=== PATIENT | female | born 1930 | race Caucasian/White ===

== ENCOUNTER 2016-07-07 13:25 | Inpatient (IN) | payer MEDICARE ==
[~2016-07-07] VITALS: Ht 160 cm; Wt 55.3 kg
[2016-07-07] MEDS ORDERED: OLANZAPINE 10 MG VIAL IM ONE ×2 (13:45→14:23)
[2016-07-07 13:48] LABS: BASOPHILS % (AUTO) 0.6 % (0.0-2.0); EOSINOPHILS # (AUTO) 0.1 K/uL (0.0-0.7); EOSINOPHILS % (AUTO) 0.8 % (0.0-7.0); HEMOGLOBIN 14.1 g/dL (12.0-16.0); MEAN CORPUSCULAR HEMOGLOBIN 28.8 uug (27.0-31.0); MEAN CORPUSCULAR HGB CONC 33 g/dL (32.0-37.0); MONOCYTES # (AUTO) 0.5 K/uL (0.1-1.30); MONOCYTES % (AUTO) 7.1 % (0.0-11.0); NEUTROPHILS % (AUTO) 75.5 % (38.5-71.5); PLATELET COUNT (AUTO) 252 K/uL (150-450); RED BLOOD CELL COUNT(AUTO) 4.89 MIL/uL (4.20-5.40); RED CELL DISTRIBUTION WIDTH 12.8 % (11.5-14.5); WHITE BLOOD COUNT (AUTO) 6.6 K/uL (4.0-11.2)
[2016-07-07 14:03] LABS: ALANINE AMINOTRANSFERASE 12 U/L (14-59); ALBUMIN 3.3 g/dL (3.4-5.0); ALKALINE PHOSPHATASE 59 U/L (50-136); ASPARTATE AMINOTRANSFERASE 15 U/L (15-37); BILIRUBIN,DIRECT 0.2 mg/dL (0.0-0.2); BILIRUBIN,TOTAL 0.7 mg/dL (0.2-1.0); CALCIUM 8.6 mg/dL (8.5-10.1); CARBON DIOXIDE 31 mmol/L (21-32); CHLORIDE 102 mmol/L (98-107); GLUCOSE 121 mg/dL (74-106); POTASSIUM 3.2 mmol/L (3.5-5.1); SODIUM SERUM 141 mmol/L (136-145); TOTAL PROTEIN, SERUM 6.7 g/dL (6.4-8.2); UREA NITROGEN, BLOOD 18 mg/dL (7-18)
[2016-07-07 14:05] LABS: ACETAMINOPHEN < 2.0 ug/mL (10-30)
[2016-07-07 14:07] LABS: ETHANOL < 3 MG/DL (0-0)
[2016-07-07 14:28] LABS: THYROID STIMULATING HORMONE 1.638 mIU/mL (0.358-3.740)
[2016-07-07] MEDS ORDERED: POTASSIUM CHLORIDE 20 MEQ TAB.PRT.SR PO ONE (14:30)
[2016-07-07] MEDS ORDERED: CLONIDINE HCL 0.2 MG TABLET PO ONE (14:30)
[2016-07-07] MEDS ORDERED: hydrALAZINE HCL 10 MG TABLET PO ONE (14:30)
[2016-07-07] MEDS ORDERED: CLONIDINE HCL 0.2 MG TABLET ONE (14:39)
[2016-07-07] MEDS ORDERED: POTASSIUM CHLORIDE 20 MEQ TAB.PRT.SR ONE (14:39)
[2016-07-07] MEDS ORDERED: hydrALAZINE HCL 10 MG TABLET ONE (14:39)
[2016-07-07] MEDS ORDERED: POTASSIUM BICARBONATE/CIT AC 25 MEQ TABLET.EFF PO ONE (14:45)
[2016-07-07] MEDS ORDERED: LORAZEPAM 0.5 MG TABLET PO ONE (14:45)
[2016-07-07] MEDS ORDERED: POTASSIUM BICARBONATE/CIT AC 25 MEQ TABLET.EFF ONE (14:46)
[2016-07-07] MEDS ORDERED: LORAZEPAM 1 MG TABLET ONE (14:51)
[2016-07-07 14:55] LABS: CREATININE 0.7 mg/dL (0.6-1.3)
[2016-07-07 15:15] LABS: *BILIRUBIN,URIN NEGATIVE (NEGATIVE); *BLOOD, URINE 2+ (NEGATIVE); *CLARITY,URINE SLIGHTLY CLOUDY (CLEAR); *COLOR,URINE STRAW (YELLOW); *KETONES,URINE NEGATIVE (NEGATIVE); *PROTEIN,URINE NEGATIVE (NEGATIVE); LEUKOCYTE ESTERASE ,URINE 1+ (NEGATIVE); NITRITE, URINE POSITIVE (NEGATIVE); PH,URINE 7.5 (5.0-8.0); UGLUCOSE NEGATIVE (NEGATIVE)
[2016-07-07 15:19] LABS: BACTERIA,URINE MANY /HPF (NONE SEEN); SQUAMOUS EPITHELIAL CELL,UR MANY /HPF (NONE SEEN)
[2016-07-07] MEDS ORDERED: CIPROFLOXACIN HCL 250 MG TABLET PO ONE (15:30)
[2016-07-07] MEDS ORDERED: CIPROFLOXACIN HCL 250 MG TABLET ONE (15:31)
[2016-07-07 15:33] LABS: *AMPHETAMINE, URINE NEGATIVE (NEGATIVE); *BARBITURATE, URINE NEGATIVE (NEGATIVE); *CANNABINOID, URINE NEGATIVE (NEGATIVE); *PHENCYCLIDINE SCREEN,URINE NEGATIVE (NEGATIVE)
[2016-07-07 15:44] LABS: *COCCAINE, URINE NEGATIVE (NEGATIVE); *OPIATE, URINE NEGATIVE (NEGATIVE)
[2016-07-07] MEDS ORDERED: ACETAMINOPHEN 325 MG TABLET PO PRN (16:45)
[2016-07-07] MEDS ORDERED: MAG HYDROX/AL HYDROX/SIMETH 30 ML LIQUID UDC PO PRN (16:45)
[2016-07-07] MEDS ORDERED: MAGNESIUM HYDROXIDE 30 ML LIQUID UDC PO PRN (16:45)
[2016-07-07 20:20] VITALS: BP 129/68
[2016-07-07] MEDS: TEMAZEPAM 7.5 MG CAPSULE PO PRN (20:40)
[2016-07-08 07:30] VITALS: BP 158/87
[2016-07-08] MEDS: SULFAMETH/TRIMETH 800/160 MG TABLET PO SCH ×2 (14:08→20:58)
[2016-07-08 15:34] VITALS: BP 145/81
[2016-07-08 19:49] VITALS: BP 148/88
[2016-07-08] MEDS: Z GUARD REMEDY PASTE 57 GM TUBE TOP SCH (20:59)
[2016-07-09] MEDS: TEMAZEPAM 7.5 MG CAPSULE PO PRN ×2 (01:44→23:40)
[2016-07-09 07:30] VITALS: BP 137/78
[2016-07-09] MEDS: SULFAMETH/TRIMETH 800/160 MG TABLET PO SCH ×2 (08:21→20:02)
[2016-07-09] MEDS: Z GUARD REMEDY PASTE 57 GM TUBE TOP SCH ×2 (08:22→20:02)
[2016-07-09] MEDS: LORAZEPAM 1 MG TABLET PO PRN ×3 (09:11→22:33)
[2016-07-09] MEDS: SERTRALINE HCL 50 MG TABLET PO SCH (09:18)
[2016-07-09 15:12] VITALS: BP 139/67
[2016-07-09] MEDS: DIVALPROEX 250 MG TABLET.DR PO SCH (21:26)
[2016-07-09] MEDS ORDERED: DIVALPROEX 250 MG TABLET.DR PO ONE (21:34)
[2016-07-10 07:30] VITALS: BP 165/79
[2016-07-10] MEDS: SULFAMETH/TRIMETH 800/160 MG TABLET PO SCH ×2 (08:46→20:31)
[2016-07-10] MEDS: DIVALPROEX 250 MG TABLET.DR PO SCH ×3 (08:46→16:23)
[2016-07-10] MEDS: SERTRALINE HCL 50 MG TABLET PO SCH (08:47)
[2016-07-10] MEDS: Z GUARD REMEDY PASTE 57 GM TUBE TOP SCH ×2 (08:47→20:31)
[2016-07-10 16:00] VITALS: BP 100/58
[2016-07-10] MEDS: TEMAZEPAM 7.5 MG CAPSULE PO PRN (20:31)
[2016-07-10 20:47] VITALS: BP 131/75
[2016-07-11 08:00] VITALS: BP 138/91
[2016-07-11] MEDS: SERTRALINE HCL 50 MG TABLET PO SCH (08:14)
[2016-07-11] MEDS: SULFAMETH/TRIMETH 800/160 MG TABLET PO SCH ×2 (08:14→20:08)
[2016-07-11] MEDS: DIVALPROEX 250 MG TABLET.DR PO SCH ×3 (08:14→17:33)
[2016-07-11] MEDS: Z GUARD REMEDY PASTE 57 GM TUBE TOP SCH ×2 (09:26→20:02)
[2016-07-11 16:00] VITALS: BP 95/56
[2016-07-11 19:57] VITALS: BP 91/50
[2016-07-11] MEDS: risperiDONE 0.25 MG TABLET PO SCH (21:00)
[2016-07-12 07:30] VITALS: BP 123/65
[2016-07-12] MEDS: risperiDONE 0.25 MG TABLET PO SCH ×2 (09:06→20:02)
[2016-07-12] MEDS: OMEGA-3 FATTY ACIDS/FISH OIL CAPSULE PO SCH (09:06)
[2016-07-12] MEDS: DIVALPROEX 250 MG TABLET.DR PO SCH ×3 (09:06→16:57)
[2016-07-12] MEDS: SULFAMETH/TRIMETH 800/160 MG TABLET PO SCH ×2 (09:06→20:02)
[2016-07-12] MEDS: SERTRALINE HCL 50 MG TABLET PO SCH (09:07)
[2016-07-12] MEDS: Z GUARD REMEDY PASTE 57 GM TUBE TOP SCH ×2 (09:08→20:04)
[2016-07-12 16:00] VITALS: BP 93/55
[2016-07-12 20:00] VITALS: BP 97/57
[2016-07-12] MEDS: TEMAZEPAM 7.5 MG CAPSULE PO PRN (22:07)
[2016-07-13] MEDS: LORAZEPAM 1 MG TABLET PO PRN ×3 (01:00→21:33)
[2016-07-13 07:30] VITALS: BP 156/75
[2016-07-13] MEDS: DIVALPROEX 250 MG TABLET.DR PO SCH ×3 (08:20→16:49)
[2016-07-13] MEDS: Z GUARD REMEDY PASTE 57 GM TUBE TOP SCH ×2 (08:20→21:36)
[2016-07-13] MEDS: SULFAMETH/TRIMETH 800/160 MG TABLET PO SCH ×2 (08:20→21:34)
[2016-07-13] MEDS: OMEGA-3 FATTY ACIDS/FISH OIL CAPSULE PO SCH (08:20)
[2016-07-13] MEDS: risperiDONE 0.25 MG TABLET PO SCH (08:20)
[2016-07-13] MEDS: SERTRALINE HCL 50 MG TABLET PO SCH (08:20)
[2016-07-13 10:39] LABS: *BILIRUBIN,URIN NEGATIVE (NEGATIVE); *BLOOD, URINE Trace-intact (NEGATIVE); *CLARITY,URINE CLOUDY (CLEAR); *COLOR,URINE YELLOW (YELLOW); *KETONES,URINE TRACE (NEGATIVE); *PROTEIN,URINE NEGATIVE (NEGATIVE); *UROBILINOGEN,URINE 0.2 E.U./dl (NORMAL); LEUKOCYTE ESTERASE ,URINE NEGATIVE (NEGATIVE); NITRITE, URINE NEGATIVE (NEGATIVE); UGLUCOSE NEGATIVE (NEGATIVE)
[2016-07-13 11:37] LABS: BACTERIA,URINE NONE SEEN /HPF (NONE SEEN); RBC,URINE 0-3 /HPF (0-3); SQUAMOUS EPITHELIAL CELL,UR NONE SEEN /HPF (NONE SEEN); URIC ACID CRYSTALS,URINE MANY /HPF (NONE SEEN); WBC,URINE NONE SEEN /HPF (0-3)
[2016-07-13 16:00] VITALS: BP 152/68
[2016-07-13] MEDS ORDERED: risperiDONE 0.5 MG TABLET PO SCH (21:00)
[2016-07-13 21:24] VITALS: BP 124/74
[2016-07-13] MEDS: TEMAZEPAM 7.5 MG CAPSULE PO PRN (21:33)
[2016-07-13] MEDS: risperiDONE 0.5 MG TABLET PO SCH (21:34)
[2016-07-14 07:30] VITALS: BP 130/70
[2016-07-14] MEDS: SERTRALINE HCL 50 MG TABLET PO SCH (08:44)
[2016-07-14] MEDS: SULFAMETH/TRIMETH 800/160 MG TABLET PO SCH (08:44)
[2016-07-14] MEDS: OMEGA-3 FATTY ACIDS/FISH OIL CAPSULE PO SCH (08:44)
[2016-07-14] MEDS: risperiDONE 0.5 MG TABLET PO SCH ×2 (08:44→20:30)
[2016-07-14] MEDS: DIVALPROEX 250 MG TABLET.DR PO SCH ×3 (08:44→17:40)
[2016-07-14] MEDS: Z GUARD REMEDY PASTE 57 GM TUBE TOP SCH ×2 (08:44→20:30)
[2016-07-14 15:14] VITALS: BP 108/58
[2016-07-14 20:16] VITALS: BP 99/57
[2016-07-14] MEDS: TEMAZEPAM 7.5 MG CAPSULE PO PRN (22:34)
[2016-07-15 07:30] VITALS: BP 127/66
[2016-07-15 08:27] LABS: ALBUMIN 2.6 g/dL (3.4-5.0); BILIRUBIN,TOTAL 0.4 mg/dL (0.2-1.0); CALCIUM 8.2 mg/dL (8.5-10.1); PHOSPHOROUS 3.9 mg/dL (2.5-4.9); POTASSIUM 4.1 mmol/L (3.5-5.1); TOTAL PROTEIN, SERUM 5.7 g/dL (6.4-8.2)
[2016-07-15 08:28] LABS: BASOPHILS % (AUTO) 0.6 % (0.0-2.0); EOSINOPHILS # (AUTO) 0.1 K/uL (0.0-0.7); EOSINOPHILS % (AUTO) 1.5 % (0.0-7.0); HEMATOCRIT 36.6 % (37.0-47.0); HEMOGLOBIN 11.9 g/dL (12.0-16.0); LYMPHOCYTES # (AUTO) 0.9 K/uL (0.8-4.8); MEAN CORPUSCULAR HGB CONC 33 g/dL (32.0-37.0); MEAN CORPUSCULAR VOLUME 89.2 fL (81.0-99.0); MONOCYTES # (AUTO) 0.4 K/uL (0.1-1.30); MONOCYTES % (AUTO) 9.6 % (0.0-11.0); NEUTROPHILS # (AUTO) 2.7 K/uL (1.8-8.9); NEUTROPHILS % (AUTO) 67.3 % (38.5-71.5); PLATELET COUNT (AUTO) 167 K/uL (150-450); RED CELL DISTRIBUTION WIDTH 12.9 % (11.5-14.5); WHITE BLOOD COUNT (AUTO) 4.1 K/uL (4.0-11.2)
[2016-07-15] MEDS: OMEGA-3 FATTY ACIDS/FISH OIL CAPSULE PO SCH (09:11)
[2016-07-15] MEDS: DIVALPROEX 250 MG TABLET.DR PO SCH ×3 (09:11→17:36)
[2016-07-15] MEDS: risperiDONE 1 MG TABLET PO SCH ×2 (09:11→20:31)
[2016-07-15] MEDS: SERTRALINE HCL 50 MG TABLET PO SCH (09:11)
[2016-07-15] MEDS: Z GUARD REMEDY PASTE 57 GM TUBE TOP SCH ×2 (09:12→20:31)
[2016-07-15 15:32] VITALS: BP 94/57
[2016-07-15 19:57] VITALS: BP 105/58
[2016-07-15] MEDS: TEMAZEPAM 7.5 MG CAPSULE PO PRN (22:01)
[2016-07-16 07:30] VITALS: BP 133/73
[2016-07-16] MEDS: risperiDONE 1 MG TABLET PO SCH (09:01)
[2016-07-16] MEDS: DIVALPROEX 250 MG TABLET.DR PO SCH ×2 (09:01→11:58)
[2016-07-16] MEDS: SERTRALINE HCL 50 MG TABLET PO SCH (09:01)
[2016-07-16] MEDS: OMEGA-3 FATTY ACIDS/FISH OIL CAPSULE PO SCH (09:02)
[2016-07-16] MEDS: Z GUARD REMEDY PASTE 57 GM TUBE TOP SCH (09:02)
== END 2016-07-16 13:15 | DRG 885 ==
LOC: ER 13:25 → GPS 15:32
PROVIDERS: ADMIT Psychiatry & Neurology Psychiatry; ATTEND Psychiatry & Neurology Psychiatry
DX: F31.64 Bipolar disorder, current episode mixed, severe, with psychotic features (principal); E11.65 Type 2 diabetes mellitus with hyperglycemia; N39.0 Urinary tract infection, site not specified; F29 Unspecified psychosis not due to a substance or known physiological condition; Z73.6 Limitation of activities due to disability; E87.6 Hypokalemia; F03.90 Unspecified dementia, unspecified severity, without behavioral disturbance, psychotic disturbance, mood disturbance, and anxiety; I25.10 Atherosclerotic heart disease of native coronary artery without angina pectoris; M81.0 Age-related osteoporosis without current pathological fracture; I70.0 Atherosclerosis of aorta; G89.29 Other chronic pain; E03.9 Hypothyroidism, unspecified; Z87.11 Personal history of peptic ulcer disease; B96.20 Unspecified Escherichia coli [E. coli] as the cause of diseases classified elsewhere; I11.9 Hypertensive heart disease without heart failure
CPT/HCPCS: 36415; 70030-TC; 70450; 71010; 80164; 80307; 83735; 84100; 84443; 85025; 85730; 87077; 87086; 93005; 97001; 97110; 97116; 97530; A4663; G0480-TC; G6040-TC; J2358; J3490